=== PATIENT | female | born 1960 | race Caucasian/White ===

== ENCOUNTER 2018-02-11 13:01 | Inpatient (IN) | payer OTHER ==
--- NOTE | 2018-02-11 13:51 | CT ---
HEAD CT WITHOUT CONTRAST: 02/11/2018 HISTORY: Slurred speech and weakness. COMPARISON: None. TECHNIQUE: Serial axial CT imaging at 5 m intervals, from the vertex through the skull base, without contrast. FINDINGS: The imaged paranasal sinuses and mastoid air cells are well aerated. There is no displaced calvarial fracture, intracranial hemorrhage, midline shift, or mass effect. IMPRESSION: No acute findings. The results were called to Dr. Addison at 1:35 p.m. on 02/11/2018. CODE CR POS: [facility]
[2018-02-11 14:19] LABS: #Eosinphils 0.1 thou/uL (0.0-0.7); #Lymphocytes 1.5 thou/uL (1.20-3.40); #Monocytes 0.4 thou/uL (0.11-0.59); #Neutrophils 2.5 thou/uL (1.40-6.50); %Basophils 0.1 % (0.0-1.0); %Eosinophils 2.8 % (0.0-10.0); %Lymphocytes 33.1 % (21.0-51.0); %Monocytes 8.6 % (0.0-10.0); %Neutrophils 55.4 % (42.0-75.0); Mean Corpuscular HGB CONC 33.6 g/dL (32.0-36.0); Mean Corpuscular Hemoglobin 29.9 pg (27.0-31.0); Mean Corpuscular Volume 89.1 fl (81.0-99.0); Mean Platelet Volume 7.9 fL (7.4-10.4); Platelet Count 201 thou/uL (130-400); RBC Distribution Width 14.6 % (11.5-14.5); White Blood Cell (WBC) Count 4.6 thou/uL (4.8-10.8)
[2018-02-11 14:25] LABS: INR-International Normal Ratio 0.9; PTT 31.8 SEC (22.9-36.1); Prothrombin Time 12.3 SEC (12.0-14.7)
[2018-02-11 14:32] LABS: ALT (SGPT) 47 U/L (8-55); AST (SGOT) 29 U/L (5-34); Albumin 4.2 g/dL (3.5-5.0); Alkaline Phosphatase 103 U/L (40-150); Anion Gap 12 mmol/L (10-20); BUN (Urea Nitrogen) 18 mg/dL (9.8-20.1); Bilirubin, Total 0.5 mg/dL (0.2-1.2); Calc. Creatinine Clearance 0 mL/min (70-130); Carbon Dioxide 23 mmol/L (22-29); Chloride 102 mmol/L (98-107); Estimated GFR-MDRD 72; Globulin 2.8 g/dL (2.4-3.5); Glucose 109 mg/dL (70-105); Potassium 3.7 mmol/L (3.5-5.1); Sodium 133 mmol/L (136-145)
[2018-02-11 14:35] LABS: Actual Bicarbonate (HCO3a) 23.4 mEq/L (22-26); Analyzer IN Cardio ER; Base Excess (BEa) -0.7 mEq/L (0 (+/-) 2.5); CO2 Tension 36.5 mmHg (35.0-45.0); Calcium, Ionized 1.3 mmol/L (1.12-1.30); Hematocrit-ABG 33.9 % (36.0-47.0); O2 Tension (PaO2) 74.3 mmHg (80.0-100.0); pH, Arterial 7.42 (7.35-7.45)
[2018-02-11 14:35] LABS: CKMB 0.8 ng/mL (0-6.6); Troponin I Less than 0.010 ng/mL (< 0.028)
[2018-02-11 14:36] LABS: ALV-art Gradient 29.805 (0-20); Puncture Site RRA
[2018-02-11] MEDS ORDERED: Labetalol HCl 100 MG/20 ML VIAL ONE (14:43)
--- NOTE | 2018-02-11 14:50 | CT ---
CT ANGIOGRAM HEAD WITH IV CONTRAST AND 3D RECONSTRUCTIONS CT ANGIOGRAM NECK WITH IV CONTRAST AND 3D RECONSTRUCTIONS CT PERFUSION HEAD: Date: 02/11/18 HISTORY: Patient slid out of chair and onto floor. Patient has slurred speech and confusion that is worse per friend. FINDINGS: CT ANGIOGRAM NECK: The left common carotid artery arises from the innominate artery and is patent. The innominate artery , as well as right subclavian artery is patent. Portions of the left subclavian artery are obscured d ue to dense contrast in the left subclavian vein. The bilateral common carotid arteries, as well as the left internal and external carotid arteries are patent. There is motion artifact at the level of the origin of the right internal carotid artery, but the rig ht internal carotid artery does appear patent. There are patent and codominant bilateral vertebral arteries. There is mild atelectasis seen in the upper lobes bilaterally. Calcified mediastinal lymph node is visualized. Minimal vascular calcifications seen at the aortic arch. No other interval change. IMPRESSION: 1. Motion artifact at the origin of the right internal carotid artery, but the right internal caroti d artery otherwise appears patent. 2. Patent left internal carotid artery. 3. Patent bilateral vertebral arteries. CT ANGIOGRAM BRAIN WITH IV CONTRAST AND 3D RECONSTRUCTIONS: There is minimal calcified atherosclerotic plaque involving the internal carotid arteries at the leve l of the carotid siphons. The bilateral middle cerebral arteries are patent. An A1 segment of the rig ht anterior cerebral artery is not visualized and may be either small or absent, either of which is a normal variant. The A1 segment on the left is prominent and appears to supply both anterior cerebral arteries. There is a -type origin involving the bilateral posterior cerebral arteries which are patent. Th e distal bilateral vertebral arteries, as well as basilar artery are patent. No aneurysm is seen within the limitations of the technique of this examination. IMPRESSION: No focal stenosis or branch occlusion involving the [place] or vertebrobasilar system. CT PERFUSION BRAIN: There is no abnormal mean transit time. There is symmetric appearance of the cerebral blood flow and blood volume without abnormality visualized. IMPRESSION: No evidence of a penumbra. The above findings were discussed with Dr. Hua in the emergency department on 02/11/18 at 1404 hour s. CODE CR. POS: [facility]
--- NOTE | 2018-02-11 16:05 | PDOC.FPRHP ---
- History of Present Illness Chief Complaint: dysphagia, weakness History of Present Illness: Patient is a 57yo CF with PMHx of tobacco abuse, HTN and HLD who presents s/p fall. During work earlier this AM, she stood up from her desk and fell on a chair. Reports at that time she also had slurred speech. Onset of symptoms around 11:30am. Patient was brought to ED via EMS. On admission to the ED, dysarthria and facial droop was noted. tPA was given after long discussion with cousin and patient. tPA given at 1528. Patient has significant FHx of early onset heart disease in father. Patient also reports she had hysterectomy at age 29 for heavy menses and what she describes as fibroids. She was on hormonal replacement for 1 year post surgery. Patient was never and has no hx of miscarriages. Denies prior TIA, CVA or ID. Family member in room at the time of evaluation and already report much improvement since tPA was given. ED Course: Initial NIH of 13. tPA given 1528. Labetalol 15mg given. - Allergies/Adverse Reactions Allergies Allergy/AdvReac Type Severity Reaction Status Date / Time No Known Allergies Allergy Unverified 02/11/18 18:04 - Home Medications Medication Instructions Recorded Confirmed Type Ibuprofen [Ibuprofen] 800 mg PO TID 02/11/18 02/11/18 History Lovastatin [Altoprev] 40 mg PO HS 02/11/18 02/11/18 History Triamterene/Hydrochlorothiazid 37.5 mg PO DAILY 02/11/18 02/11/18 History [Dyazide 37.5-25 Capsule] clonazePAM [Klonopin] 0.5 mg PO HS 02/11/18 02/11/18 History metFORMIN HCl [Metformin HCl ER] 1,000 mg PO BID 02/11/18 02/11/18 History Comments: Unknown medications and dosages. Patient knows she takes Metformin and Klonopin. - History PMHx: 1. HTN 2. T2DM 3. Anxiety 4. RED 5. Restless Leg Syndrome PSHx: 1. Hysterectomy FHx: Social: tobacco: 1-2 cigarettes/day; has smoked for 8-10yrs alcohol: none drugs: none recent illness: "walking PNA" 2 weeks prior PCP: Dr. Guadalupe - Review of Systems General: denies: fever/chills, weight/appetite/sleep changes Eyes: denies: eye pain, vision changes ENT: denies: nasal congestion, rhinorrhea Respiratory: denies: cough, shortness of breath Cardiovascular: denies: chest pain, palpitation Gastrointestinal: denies: nausea, vomiting, abdominal pain Genitourinary: denies: dysuria Skin: denies: rashes Musculoskeletal: reports: swelling. denies: pain, tenderness Neurological: reports: weakness. denies: numbness, syncope, seizure Psychological: reports: anxiety. denies: depression - Vital signs BP: 172/96 HR: 98 RR: 20 Tmax: 97.8 Pox: 98% on RA Wt: 108kg - Physical Exam Constitutional: awake, alert and oriented, well developed -Constitutional: dysarthric when speaking, slow to answer. HEENT: normocephalic and atraumatic, PERRLA, EOMI, grossly normal vision, grossly normal hearing Neck: supple, FROM, no bruits Heart: RRR, normal S1/S2, no murmurs/rubs/gallops, pulses present -Heart: 1+ pitting edema Lungs: CTAB, no respiratory distress, good air movement Abdomen: soft, non-tender, bowel sounds present Musculoskeletal: normal structure, normal tone -Musculoskeletal: strength 5/5 in UE bilaterally and 5/5 in RLE and 4/5 in LLE Neurological: CN II-XII intact, normal sensation, DTRs 2+ -Neurological: difficulty with spatial recognition during finger to nose test, difficulty when performing dysdiadochokinesia, recent memory of event clouded, otherwise memory intact, dysarthric speech Skin: no rash/lesions Heme/Lymphatic: no purpura, no petechia FMR H&P: Results - Labs Result Diagrams: 02/11/18 14:08 02/11/18 14:08 Lab results: WBC 4.6 thou/uL (4.8-10.8) L 02/11/18 14:08 Hgb 12.0 g/dL (12.0-16.0) 02/11/18 14:08 Hct 35.7 % (36.0-47.0) L 02/11/18 14:08 MCV 89.1 fl (81.0-99.0) 02/11/18 14:08 Plt Count 201 thou/uL (130-400) 02/11/18 14:08 Neutrophils % 55.4 % (42.0-75.0) 02/11/18 14:08 ABG pH 7.42 (7.35-7.45) 02/11/18 14:30 ABG pCO2 36.5 mmHg (35.0-45.0) 02/11/18 14:30 ABG pO2 74.3 mmHg (80.0-100.0) L 02/11/18 14:30 Sodium 133 mmol/L (136-145) L 02/11/18 14:08 Potassium 3.7 mmol/L (3.5-5.1) 02/11/18 14:08 Chloride 102 mmol/L (98-107) 02/11/18 14:08 Carbon Dioxide 23 mmol/L (22-29) 02/11/18 14:08 BUN 18 mg/dL (9.8-20.1) 02/11/18 14:08 Creatinine 0.82 mg/dL (0.6-1.1) 02/11/18 14:08 Glucose 109 mg/dL (70-105) H 02/11/18 14:08 Calcium 10.0 mg/dL (7.8-10.44) 02/11/18 14:08 Total Bilirubin 0.5 mg/dL (0.2-1.2) 02/11/18 14:08 AST 29 U/L (5-34) 02/11/18 14:08 ALT 47 U/L (8-55) 02/11/18 14:08 Alkaline Phosphatase 103 U/L (40-150) 02/11/18 14:08 CK-MB (CK-2) 0.8 ng/mL (0-6.6) 02/11/18 14:08 Serum Total Protein 7.0 g/dL (6.0-8.3) 02/11/18 14:08 Albumin 4.2 g/dL (3.5-5.0) 02/11/18 14:08 - EKG Interpretation EKG: Sinus Tachycardia, rate of 107 - Radiology Interpretation Other Status: image reviewed by me, report reviewed by me Additional comment: CTA head and neck- negative FMR H&P: A/P - Problem List (1) CVA (cerebral vascular accident) Current Visit: No Status: Suspected Code(s): I63.9 - CEREBRAL INFARCTION, UNSPECIFIED (2) Hypertensive emergency Current Visit: No Status: Acute Code(s): I16.1 - HYPERTENSIVE EMERGENCY (3) HTN (hypertension) Current Visit: No Status: Chronic Code(s): I10 - ESSENTIAL (PRIMARY) HYPERTENSION (4) Tobacco abuse Current Visit: No Status: Chronic Code(s): Z72.0 - TOBACCO USE (5) Anxiety Current Visit: No Status: Chronic Code(s): F41.9 - ANXIETY DISORDER, UNSPECIFIED (6) Type 2 diabetes mellitus Current Visit: No Status: Chronic (7) Restless leg syndrome Current Visit: No Status: Chronic (8) RED on CPAP Current Visit: No Status: Chronic Code(s): G47.33 - OBSTRUCTIVE SLEEP APNEA (ADULT) (PEDIATRIC); Z99.89 - DEPENDENCE ON OTHER ENABLING MACHINES AND DEVICES (9) Tachycardia Current Visit: No Status: Acute Code(s): R00.0 - TACHYCARDIA, UNSPECIFIED - Plan Presumed CVA s/p tPA - tPA given 1328 on 02/11 - refrain from blood draws until 24hrs post tPA - start high intensity statin and ASA after 24h post tPA - Neuro consulted, appreciate recs. - allow for permissive HTN with cutoff of 180/105, Labetalol prn for pressures greater than 180/105 - CT head tomorrow and MRI tomorrow - Work up cause of stroke with thrombotic panel and echo, FLP, FHx of early cardiac disease - Neuro checks, fall precautions - PT/OT/speech evals - NPO pending speech eval Hypertensive Emergency - allow permissive HTN as discussed above with prn Labetalol HTN - restart home meds after window for permissive HTN - awaiting med reconcilliation Anxiety - patient reports Klonopin as home medication but unsure dose - Will give anxiety meds on a prn basis at this point T2DM - unsure of home meds - NPO for now, will start SSI Restless Leg Syndrome - med rec and restart home meds RED - CPAP at night Tobacco Abuse - Nicotine patch prn - child welfare counselor on cessation VTE PPx: SCDs Code status: Full Discussed case with Dr. Fernández. Symptomatic meds will be provided. Disposition/LOS: Plan for at least 2 midnights with monitoring post tPA, Neuro eval and possible need for PT/OT/speech going home. FMR H&P: Upper Level - Pertinent history 57yo CF with PMHx of HTN and T2DM who presents s/p fall. Patient was at work when she stood up and fell into a chair. Endorses slurred speech at that time. Cousin at beside who reports she also had LT sided facial droop and LT sided weakness, mainly LUE. No hx of prior CVAs. Positive history of early family CHD. Onset of symptoms at 11:30am and received tPA at 3:30pm. Cousin reports she has had improvement in speech and weakness since tPA has been given. - Pertinent findings T 97.8 RR 20 HR 98 BP 187/123 O2 98% on RA Gen: NAD, A&O x3 HEENT: PERRLA Heart: S1 S2, RRR Lungs: CTAB Neuro: CN2-12 intact except for slight decrease LT sided facial sensation; BL UE : 5/5; LLE 3+/5; RLE 5/5, normal ELIO, normal FTNF CT Head: negative CTA Head/Neck: negative - Plan Date/Time: 02/11/18 3829 1. Slurred speech & weakness likely 2/2 CVA w/ hypertensive emergency: Onset of symptoms around 11:30am and s/p tPA at 3:30pm. Family at bedside who already report improvement in symptoms since medication. Admit to CCU for close monitoring. CT brain negative. Strict BP control at BP<180/105 for 24hrs. No anticoagulants/antiplatelets for 24hrs. Obtain Echo, FLP, thrombotic panel and MRI Head. Repeat CT Head in 24hrs. Neuro checks. Consult Neurology for further evaluation. 2. HTN: Patient does not know her home medications. Strict BP control. See #1 and provide meds prn. 3. T2DM: Obtain A1c. Patient states she is on metformin but doesnt know the dose. Monitor. 4. Anxiety: states she is on klonopin but does not know other meds. 5. RED: CPAP qHS 6. PPx: SCDs 7. Diet: NPO 8. Code Status: Full I, Abiola Feliz, have evaluated this patient and agree with findings/ plan as outlined by senior insight manager international resident. Pertinent changes/additions are listed here. Attending Addendum - Attending Addendum Date/Time: 02/11/18 1728 I personally evaluated the patient and discussed the management with Dr. Boyer and Dr. Feliz I agree with the History, Examination, Assessment and Plan documented above with any addition or exceptions noted below. 57 yo female with history of HTN, HLD, obesity, T2DM, RED, and tobacco use with family history of premature CHD presents to ED for evaluation of stroke-like symptoms. Symptoms include slurred speech, facial droop, and LUE weakness. Received tPA in the ED. Symptoms have improved except slurred speech and dysdiadochokinesia. Other contributing factors also include premature oophrectomy with minimal HRT. Otherwise patient denies previous history of TIA/ CVA/A fib etc. VS reviewed. Noted to be sinus tachycardia with Hypertension Emergency. Hypertensive emergency with CVA s/p tPA Will admit to ICU. Monitor closely. Will allow permissive hypertension. Labs pending. Will hold on thrombotic panel at this time. ECHO to rule out VINNIE clot and PFO. Brain imaging ordered. Trend CE. Monitor for arrhythmias. CTA of neck reviewed. Keep glucose below 150. Neuro team consulted. Adjust home meds based on co-morbid condition and other risk factors. Edna
[2018-02-11] MEDS ORDERED: ISOVUE-370 76%-LOCM 1 ML ONE (16:45)
[2018-02-11] MEDS ORDERED: Dextrose 50% Abboject 50 ML SYRINGE SLOW IVP PRN (16:57)
[2018-02-11] MEDS ORDERED: Labetalol HCl 100 MG/20 ML VIAL SLOW IVP PRN (16:57)
[2018-02-11] MEDS ORDERED: Dextrose 5% in Water 1,000 ML IV PRN (16:57)
[2018-02-11] MEDS ORDERED: Docusate 100 MG CAP PO PRN (16:57)
[2018-02-11] MEDS ORDERED: Acetaminophen 325 MG TAB PO PRN (16:57)
[2018-02-11] MEDS ORDERED: Ondansetron ODT 4 MG TAB PO PRN (17:23)
[2018-02-11] MEDS ORDERED: HumaLOG 300 UNITS/3 ML VIAL SC PRN ×2 (17:23)
[2018-02-11] MEDS ORDERED: Nicotine 14 MG PATCH TD PRN (17:23)
[2018-02-11] MEDS ORDERED: Ondansetron HCl/PF 4 MG/2 ML Vial IVP PRN (17:23)
[2018-02-11 18:00] LABS: Hemoglobin A1c 6.6 % (4.0-6.0)
--- NOTE | 2018-02-11 18:32 | CT ---
CT BRAIN NONCONTRAST: HISTORY: 57-year-old female with CVA: Dysarthria and confusion. FINDINGS: There is no midline shift or any other mass effect. There is no evidence of acute intracranial hemor rhage, large cortical infarct, obstructive hydrocephalus, or extraaxial fluid collection. The calvar ium is intact. IMPRESSION: No acute intracranial findings. piter POS: [facility]
[2018-02-11] MEDS: Atorvastatin Calcium 40 MG TAB PO SCH (19:59)
[2018-02-11] MEDS: clonazePAM 0.5 MG TAB PO SCH (21:15)
[2018-02-11] MEDS ORDERED: clonazePAM 0.5 MG TAB PO SCH (23:30)
[2018-02-11] MEDS: Sodium Chloride 0.9% 1,000 ML IV SCH (23:37)
--- NOTE | 2018-02-12 00:20 | CON ---
DATE OF CONSULTATION: 02/11/2018 REASON FOR CONSULTATION: Acute onset right-sided weakness. REFERRING PHYSICIAN: Dr. Janell Boyer. HISTORY OF PRESENT ILLNESS: Ms. Tidwell is a pleasant 57-year-old female , who has been consulted for evaluation of right-sided weakness. History is obtained from the patient's cousin, who was present at bedside. Apparently, patient was sitting in a chair and was having difficulty with standing up. She tried to get up and she fell back down onto the chair. She was also noted to have some slurring of the speech. EMS was called. On the arrival of the EMS, the patient kept repeating that she is dizzy. She was also having difficulty with moving her right side and her speech was being slurred. She currently denies any headache, chest pain, palpitation, nausea, vomiting. PAST MEDICAL HISTORY: Significant for hypertension, diabetes, anxiety, obstructive sleep apnea, restless legs syndrome. PAST SURGICAL HISTORY: Significant for hysterectomy. FAMILY HISTORY: Noncontributory. SOCIAL HISTORY: She smokes 1-2 cigarettes per day. She denies alcohol use. She denies illicit drug use. FAMILY HISTORY: Noncontributory. CURRENT MEDICATIONS: Please review MAR. ALLERGIES: No known drug allergies. REVIEW OF SYSTEMS: As mentioned, which was negative. PHYSICAL EXAMINATION: VITAL SIGNS: Blood pressure of 174/106, pulse of 103, temperature of 97.4, respirations of 16, O2 sats of 96% on room air. GENERAL: A well-developed, well-nourished female, in no apparent distress. RESPIRATORY: Clear to auscultation bilaterally. CARDIOVASCULAR: Regular rate and rhythm. NEUROLOGIC: Mental status: The patient is awake, alert, oriented x3. Speech and language: Fluent speech. Cranial nerves: Pupils are 3 mm and reactive. Visual tsai are full to finger counts, and full to threat. External muscles are intact. Face is symmetric. Tongue is midline. Motor exam showed normal tone and bulk with a 5/5 strength in both upper extremities with a slight pronator drift on the right upper extremity. Her strength in both lower extremities is 5/5 except in the right lower extremity. She is weak on hip flexion and has right lower extremity pronator drift. Sensory: Sensation is intact. Deep tendon reflexes 1+ reflex in both upper and lower extremities. Babinski: Plantar responses flexion bilaterally. Coordination intact to finger -nose-finger and finger tapping bilaterally. LABORATORY DATA: Labs are reviewed, which included CBC, coag panel, CMP, which is significant for WBC of 4.6, sodium 133, glucose of 109, and hemoglobin A1c of 6.6, otherwise unremarkable. IMAGING STUDIES: CT head without contrast, CT angiogram of the head and neck, and CT perfusion scan were reviewed. CT head without contrast showed no acute intracranial abnormality. CT angiogram of the head and neck were reviewed, which showed no acute intracranial or extracranial vascular abnormality. CT perfusion scan of the brain was reviewed, which showed no evidence of penumbra. IMPRESSION: 1. Acute onset right-sided weakness, likely secondary to ischemic event. Patient is status post IV tPA. 2. Hypertension. 3. Diabetes. ASSESSMENT AND PLAN: Ms. Tidwell is a pleasant 57-year-old female, who presented with acute onset of right hemiparesis. She is now status post IV tPA. At this time, I would recommend continuing close monitoring for neurological exam over the next 24 hours. I will recommend obtaining MRI brain without contrast in the morning. I will recommend obtaining echocardiogram and lipid profile for stroke workup. I will recommend avoiding any antiplatelet or anticoagulation therapy for 24 hours post-TPA. Consult PT, OT, speech therapy. Continue current medical management. Thank you for consultation. FAINA
[2018-02-12] MEDS ORDERED: rOPINIRole HCl 0.5 MG TAB PO SCH (01:45)
--- NOTE | 2018-02-12 07:38 | PDOC.FM ---
- Subjective Subjective: Patient states she is doing better this morning, confirmed by family member at bedside. Overnight did have trouble with pain in her legs due to known restless leg syndrome, relieved by Klonopin and Requip. Otherwise, patient reports increased strength but continued speech difficulty. - Objective MAR Reviewed: Yes Vital Signs & Weight: Vital Signs (12 hours) Temp Pulse Resp BP Pulse Ox 02/12/18 04:00 98.4 F 02/12/18 02:35 86 97 02/11/18 22:59 100 187/90 H 02/11/18 20:00 97.4 F L 100 20 97 Most Recent Monitor Data Heart Rate from ECG 82 NIBP 130/64 NIBP BP-Mean 75 Respiration from ECG 18 SpO2 96 I&O: 02/11/18 02/12/18 02/13/18 06:59 06:59 06:59 Intake Total 664 Output Total 1225 Balance -561 Result Diagrams: 02/11/18 14:08 02/11/18 14:08 Phys Exam - Physical Examination Constitutional: NAD HEENT: PERRLA, moist MMs EOMI Neck: full ROM Respiratory: no wheezing, no rales, clear to auscultation bilateral Cardiovascular: RRR, no significant murmur Gastrointestinal: soft, non-tender, no distention trace edema bilateral LE Neurological: moves all 4 limbs strength 5/5 in bilateral UE and RLE, LLE with 4/5. Improved finger to nos dysarthria from baseline Psychiatric: normal affect, A&O x 3 Skin: cap refill <2 seconds Dx/Plan (1) CVA (cerebral vascular accident) Code(s): I63.9 - CEREBRAL INFARCTION, UNSPECIFIED Status: Suspected (2) Hypertensive emergency Code(s): I16.1 - HYPERTENSIVE EMERGENCY Status: Acute (3) HTN (hypertension) Code(s): I10 - ESSENTIAL (PRIMARY) HYPERTENSION Status: Chronic (4) Tobacco abuse Code(s): Z72.0 - TOBACCO USE Status: Chronic (5) Anxiety Code(s): F41.9 - ANXIETY DISORDER, UNSPECIFIED Status: Chronic (6) Type 2 diabetes mellitus Status: Chronic (7) Restless leg syndrome Status: Chronic (8) RED on CPAP Code(s): G47.33 - OBSTRUCTIVE SLEEP APNEA (ADULT) (PEDIATRIC); Z99.89 - DEPENDENCE ON OTHER ENABLING MACHINES AND DEVICES Status: Chronic (9) Tachycardia Code(s): R00.0 - TACHYCARDIA, UNSPECIFIED Status: Acute - Plan Plan: Presumed CVA s/p tPA - symptoms improving overall, still with dysarthria and LLE weakness - tPA given 1328 on 02/11 - refrain from blood draws, anticoagulants and antiplatelets until 24hrs post tPA - continue high intensity statin - Dr. Montejo, Neuro, following. Appreciate recs. - allow for permissive HTN with cutoff of 180/105, Labetalol prn for pressures greater than 180/105 - MRI today - Work up cause of stroke with thrombotic panel and echo, FLP - Neuro checks, fall precautions - PT/OT/speech evals Hypertensive Emergency - allow permissive HTN as discussed above with prn Labetalol HTN - restart home meds after window for permissive HTN - currently normotensive Anxiety - patient reports Klonopin as home medication but unsure dose - Will give anxiety meds on a prn basis at this point T2DM - ACHS accuchecks - Restart home Metformin Restless Leg Syndrome - Continue Klonopin and Requip RED - CPAP at night Tobacco Abuse - Nicotine patch prn - vocational guidance counselor on cessation
[2018-02-12] MEDS: metFORMIN XR 500 MG TAB PO SCH ×2 (09:33→19:20)
[2018-02-12] MEDS: Triamterene/Hydrochlorothiazide 37.5 mg/25 mg Tablet PO SCH (09:34)
--- NOTE | 2018-02-12 12:08 | CT ---
CT HEAD: 02/12/2018 HISTORY: Recurrent transient ischemic attack. Status post tPA administration. Slurred speech with uneven pup ils. COMPARISON: 02/11/2018 TECHNIQUE: Serial axial CT imaging at 5 mm intervals, from the vertex through the skull base, without contrast. FINDINGS: The imaged paranasal sinuses/mastoid air cells are well aerated. There is no displaced calvarial fra cture noted. No intracranial hemorrhage, midline shift, mass effect, or ventricular enlargement. IMPRESSION: 1. No intracranial hemorrhage or displaced calvarial fracture. If there is clinical concern for an a cute infarction, a brain MRI is advised. POS: [facility]
--- NOTE | 2018-02-12 12:46 | ADD-PRG ---
DATE OF SERVICE: 02/12/2018 This is an addendum to the note of Dr. Janell Boyer. I examined Ms. Tidwell early this morning. At the time of my initial exam, she was sitting in bed quiet ly. She was completely awake, alert, and in no distress. She had been admitted with hemiparesis and slurred speech. She was given t-PA in the emergency room. She has subsequently undergone a CTA of the head and neck that shows no obstructive lesions. We are awaiting results of an echocardiogram. We will start her on aspirin and have started her on atorvastatin. Her chemistry shows a sodium 133, potassium 3.7, chloride 102, bicarbonate 23, BUN 18, creatinine 0.82. Her hemoglobin A1c is 6.6. S he has also been seen in consultation by the Neurology service of Dr. Montejo. Approximately 30 minutes after my initial visit we were called to her bedside when she was complainin g of profound "dizziness." Her neurological exam at that time was unchanged. She had no focal defic its. Given that she had received t-PA we sent her for a stat noncontrast head CT which did not show any evidence of intracranial bleed. An MRI of the brain is currently pending. We will continue to michael magallanes with Dr. Montejo.
--- NOTE | 2018-02-12 13:01 | MRI ---
MRI BRAIN WITHOUT CONTRAST: Date: 02/12/18 HISTORY: CVA. COMPARISON: CT brain dated 02/12/18. FINDINGS: On the diffusion-weighted imaging sequence, there are no abnormal areas of diffusion restriction to s uggest acute infarction. This is confirmed on the ADC map. On the susceptibility imaging sequence, there are no abnormal areas of hemorrhage. Normal marrow sign al in the clivus on T1 weighted sequence. The cerebellar tonsils terminate at the foramen magnum. Orbits unremarkable. Parotid glands unremarkable. IMPRESSION: No acute hemorrhage or infarct. POS: [facility]
[2018-02-12 18:16] VITALS: BMI 44.1
[2018-02-12] MEDS ORDERED: levETIRAcetam In NaCl (Iso-Os) 1,000 MG in Premix Bag 1 BAG IVPB SCH (19:30)
--- NOTE | 2018-02-12 20:01 | PRG ---
DATE OF SERVICE: 02/12/2018 SUBJECTIVE: Ms. Tidwell is a pleasant 57-year-old female who presented with episode of right-sided weakness. She is status post IV TPA. She apparently had another episode this morning that was similar in nature. There was a family member present at bedside during that episode. She mentioned the patient started complaining of having dizziness and vertigo-type sensation followed by loss of consciousness that lasted for few minutes. There was no convulsions, no jerking, no twitching noted, although she did have a shaking of her legs at that time. She felt that she has a history of restless leg syndrome and she may be having restless leg movements. After she regained consciousness, she was having slurred speech and right-sided weakness. She has no recollection of the event that took place. She had a stat CT head without contrast done, which showed no acute intracranial abnormality. She also had MRI brain performed this afternoon, which showed no acute intracranial abnormality. She has returned to her baseline. She does have history of restless leg syndrome and was given Requip overnight, which did help with her restless leg movements. PHYSICAL EXAMINATION: VITAL SIGNS: Blood pressure of 168/98, pulse of 100, temperature of 98, respirations of 13, O2 sats of 97% on room air. GENERAL: Well-developed, well-nourished female, in no apparent distress. RESPIRATORY: Clear to auscultation bilaterally. CARDIOVASCULAR: Regular rate and rhythm. NEUROLOGICAL: Mental status: The patient is awake, alert, oriented x3. Speech and language: Fluent speech. Cranial nerves: Pupils are 3 mm and reactive. Visual tsai are intact. External muscles are intact. No nystagmus is noted. Face is symmetric. Tongue and uvula midline. Motor exam showed normal tone and bulk with a 5/5 strength in both lower extremities. Sensory: Sensation is intact and symmetric. IMAGING STUDIES: CT head without contrast was reviewed, which showed no acute intracranial abnormality. MRI brain without contrast was reviewed, which showed no ischemic event. No acute intracranial abnormality. IMPRESSION: 1. Recurrent episode of confusion followed by right hemiparesis, could be complex partial seizure followed by Gideon's paralysis. 2. Malignant hypertension. PLAN: Ms. Tidwell is a pleasant 57-year-old female who had another episode of confusion followed by right hemiparesis and dysarthria and retrograde amnesia of the event, this could be a complex partial seizure followed by Gideon's paralysis. She did have an EEG done today which I have reviewed, which showed no epileptiform discharges, sharp transients, or asymmetry. It was essentially normal awake and drowsy EEG. I have discussed with the family in detail and explained that EEG can be normal in some patients. I would recommend starting her on Keppra 500 mg b.i.d. I will load her with Keppra 1000 mg IV now dose. I have advised her that she cannot drive for at least 3 months from her last seizure episode. She will need a follow up in my clinic in 4 weeks post-discharge. There is no further neurological workup needed from my standpoint. If the patient remains stable overnight, I am okay for her to be discharged to home. She will follow up in my clinic in 4 weeks post-discharge. FAINA
[2018-02-12] MEDS: Atorvastatin Calcium 40 MG TAB PO SCH (20:55)
[2018-02-12] MEDS: clonazePAM 0.5 MG TAB PO SCH (20:55)
[2018-02-12] MEDS ORDERED: rOPINIRole HCl 0.5 MG TAB PO PRN (22:03)
[2018-02-12] MEDS: levETIRAcetam 500 MG TAB PO SCH (22:19)
[2018-02-13 05:41] LABS: Anion Gap 11 mmol/L (10-20); BUN (Urea Nitrogen) 11 mg/dL (9.8-20.1); Calc. Creatinine Clearance 119 mL/min (70-130); Calcium 10.4 mg/dL (7.8-10.44); Carbon Dioxide 28 mmol/L (22-29); Cardiac Risk 4.6 (Less than 4.5); Chloride 104 mmol/L (98-107); Cholesterol 174 mg/dl (< 200 Desired); Estimated GFR-MDRD 70; Glucose 148 mg/dL (70-105); HDL Cholesterol 38 mg/dL (>60 Neg Risk); LDL Cholesterol, Calculated 101 mg/dL; Potassium 3.7 mmol/L (3.5-5.1); Sodium 139 mmol/L (136-145); Triglycerides 175 mg/dL (Less than 150)
[2018-02-13 06:04] LABS: Band 5 % (5-11); Eosinophils 2 % (0-10); Hemoglobin 11.4 g/dL (12.0-16.0); Lymphocytes 33 % (21-51); MDiff Complete? YES; Mean Corpuscular Hemoglobin 29.3 pg (27.0-31.0); Mean Corpuscular Volume 88.7 fl (81.0-99.0); Mean Platelet Volume 7.9 fL (7.4-10.4); Monocytes 5 % (0-10); Neutrophil 55 % (42-75); Nucleated RBC 1 % (0); Platelet Count 208 thou/uL (130-400); RBC Distribution Width 14.9 % (11.5-14.5); RBC Morphology Normal; Red Blood Cell (RBC) Count 3.88 mill/uL (4.20-5.40); White Blood Cell (WBC) Count 4.6 thou/uL (4.8-10.8)
--- NOTE | 2018-02-13 06:24 | PDOC.FM ---
- Subjective Subjective: Patient is feeling better this morning. She reports normal strength. Yesterday morning had an episode of dizziness and worsened speech, she was evaluated at that time and had no focal neurological deficits from prior days. A stat CT was obtained to r/o hemorrhage s/p tPA. The CT was negative. There was mention through chart review that the patient had some shakiness of LE during the event. Patient's episode resolved on its own and today is back to her baseline. She reports she is ready to go home. - Objective MAR Reviewed: Yes Vital Signs & Weight: Vital Signs (12 hours) Temp Pulse Resp Pulse Ox 02/13/18 05:00 98.4 F 02/12/18 20:00 98.0 F 98 18 100 Weight Weight 99.3 kg Most Recent Monitor Data Heart Rate from ECG 81 NIBP 108/70 NIBP BP-Mean 86 Respiration from ECG 19 SpO2 94 I&O: 02/11/18 02/12/18 02/13/18 06:59 06:59 06:59 Intake Total 664 561 Output Total 1226 4315 Balance -561 -2134 Result Diagrams: 02/13/18 05:13 02/13/18 05:13 Phys Exam - Physical Examination Constitutional: NAD HEENT: PERRLA, moist MMs Respiratory: no wheezing, no rales, clear to auscultation bilateral Cardiovascular: RRR, no significant murmur Gastrointestinal: soft, non-tender Musculoskeletal: pulses present Neurological: normal sensation, moves all 4 limbs no dysdiadochokinesia, strength 5/5 UE and LE Psychiatric: normal affect, A&O x 3 Dx/Plan (1) Complex partial seizure Code(s): G40.209 - LOCAL-REL SYMPTC EPI W CMPLX PRT SEIZ,NOT NTRCT,W/O STAT EPI Status: Suspected Qualifiers: Epilepsy type: partial symptomatic (2) CVA (cerebral vascular accident) Code(s): I63.9 - CEREBRAL INFARCTION, UNSPECIFIED Status: Ruled-out (3) Hypertensive emergency Code(s): I16.1 - HYPERTENSIVE EMERGENCY Status: Acute (4) HTN (hypertension) Code(s): I10 - ESSENTIAL (PRIMARY) HYPERTENSION Status: Chronic (5) Tobacco abuse Code(s): Z72.0 - TOBACCO USE Status: Chronic (6) Anxiety Code(s): F41.9 - ANXIETY DISORDER, UNSPECIFIED Status: Chronic (7) Type 2 diabetes mellitus Status: Chronic (8) Restless leg syndrome Status: Chronic (9) RED on CPAP Code(s): G47.33 - OBSTRUCTIVE SLEEP APNEA (ADULT) (PEDIATRIC); Z99.89 - DEPENDENCE ON OTHER ENABLING MACHINES AND DEVICES Status: Chronic (10) Tachycardia Code(s): R00.0 - TACHYCARDIA, UNSPECIFIED Status: Acute - Plan Plan: Complex Partial Seizure, suspected - Loading dose of 1000mg Keppra given - will give Keppra 500mg BID daily going forward - No driving until seizure free for 3 months - F/u with Dr. Montejo outpatient in 4 wks CVA s/p tPA, ruled out - patient with another episode of dizziness and L sided weakness yesterday, stat CT negative for hemorrhage, possible shaking of legs during this episode-- > May be complex partial seizure. - tPA given 1328 on 02/11, tPA protocol complete - continue high intensity statin with ASCVD 10yr risk is 15% - Dr. Montejo, Neuro, following. Appreciate recs. - MRI negative - Work up stroke causes with thrombotic panel and echo, FLP -FLP with high triglycerides -thrombotic panel pending -echo pending - Neuro checks, fall precautions - PT/OT/speech evals HTN - hold home meds, patient currently hypotensive Anxiety - patient reports Klonopin as home medication but unsure dose - Will give anxiety meds on a prn basis at this point T2DM - ACHS accuchecks - Restart home Metformin Restless Leg Syndrome - Continue Klonopin and Requip RED - CPAP at night Tobacco Abuse - Nicotine patch prn - guidance counselor on cessation Hypertensive Emergency - resolved Dispo: Likely d/c home today with follow up with Dr. Montejo outpatient.
[2018-02-13 06:43] LABS: PTT 35.2 SEC (22.9-36.1); Prothrombin Time 13.7 SEC (12.0-14.7)
[2018-02-13 06:44] LABS: D-Dimer Test 0.46 *mcg/mL (0.27-0.43)
[2018-02-13] MEDS ORDERED: Aspirin 325 mg Enteric Coated Tablet PO SCH (09:00)
[2018-02-13] MEDS: levETIRAcetam 500 MG TAB PO SCH (09:35)
[2018-02-13] MEDS: Triamterene/Hydrochlorothiazide 37.5 mg/25 mg Tablet PO SCH (09:35)
[2018-02-13] MEDS: metFORMIN XR 500 MG TAB PO SCH (09:40)
--- NOTE | 2018-02-13 09:44 | CON ---
DATE OF CONSULTATION: 02/12/2018 SERVICE: PULMONARY MEDICINE: REASON FOR CONSULT: ICU patient. HISTORY OF PRESENT ILLNESS: The patient is a 57-year-old white female with past medical history is significant for hypertension, diabetes, sleep apnea, restless leg syndrome. She was in her usual state of health until she had an abrupt onset of neurologic function. She stood up from her desk at work and fell on a chair. She also had some slurred speech. She was brought to the emergency department via an EMS and she had some noted facial droop that was present. That being said she did not have many focalizing symptoms. She ended up getting a dose of TPA yesterday at 1530 hours. Following the TPA administration, things seem to resolve quite abruptly. She nearly returned to her usual state of health by this afternoon. She was doing well through the morning and was going to be considered for transition to the floor, when she had an abrupt onset of the same changes. She was then sent down for an MRI of the head that was previously scheduled. She is just now returning from that. She currently denies any. This neurologic episode is also starting to clear. At this time, she has no focalizing symptoms and is able to understand all of my speech, and speak with coherent thoughts. PAST MEDICAL HISTORY: 1. Morbid obesity. 2. Hypertension. 3. Dyslipidemia. 4. Anxiety disorder. 5. Type 2 diabetes mellitus. 6. Obstructive sleep apnea. 7. Restless leg syndrome. PAST SURGICAL HISTORY: Hysterectomy. SOCIAL HISTORY: One to two cigarettes on a daily basis. She denies any alcohol or illicit drug use. She had walking pneumonia 2 weeks prior to admission. She denies any illicit drugs, chemicals, dust asbestos or tuberculosis. FAMILY HISTORY: Noncontributory. ALLERGIES: No known drug allergies. MEDICATIONS: List for inpatient medications were reviewed. No updates were made at this time. PHYSICAL EXAMINATION: VITAL SIGNS: Afebrile, pulse 100, blood pressure 183/104, respirations 13, saturation 97% on room air. GENERAL: The patient is awake and alert. She is absolutely in no distress. HEENT: Normocephalic, atraumatic. Sclerae are white, conjunctivae pink. Oral mucosa is moist without lesions. LUNGS: Very good air entry. There is no prolonged expiratory phase or wheezing present. HEART: Normal rate, regular. ABDOMEN: Soft, nontender, nondistended. Bowel sounds are positive. MUSCULOSKELETAL: No cyanosis or clubbing. Trace to 1+ pitting in the bilateral lower extremities. NEUROLOGIC: She demonstrates excellent strength throughout. This is perfectly symmetric. Cranial nerves II-XII are intact. She rapidly alternating movements are symmetric. There are little slow in the upper extremities, but once again, they are symmetric individually. Her kams-to-[id number] is intact as is [id number]. She demonstrates no asterixis. Sensation seems to be intact throughout. Gait will not be tested at this time. LABORATORY DATA: WBC 4.6, hemoglobin 12.0, platelets 201,000. INR is 0.9. PH 7.42, pCO2 of 36, pO2 of 74. Basic metabolic profile and liver function studies are completely unremarkable. Troponin is negative. Hemoglobin A1c is 6.6. Blood sugars ranged from 109-160. IMAGIN. MRI of the brain demonstrates no acute hemorrhage or infarction identified. 2. CT of the brain demonstrates no acute intracranial abnormality. 3. Echocardiogram demonstrates 50-55% ejection fraction. Normal left ventricle. Normal right atrium and right ventricle function. No evidence of pericardial effusion. Certainly, no vegetations in any of the valves were identified. No thrombus is noted. 4. CTA of the head and neck demonstrates motion artifact at the origin of the right ICA, but the right internal carotid artery is otherwise patent. Patent left internal carotid artery. Patent bilateral vertebral arteries. No evidence of an ischemic penumbra. No focal stenosis or branch occlusions are involving the [place] or vertebrobasilar system. ASSESSMENT: 1. Spell status post TPA. 2. Morbid obesity. 3. Anxiety disorder. 4. Type 2 diabetes mellitus. PLAN: At this point, neurologic exam is completely nonfocal once again. From my perspective, she is stable for transition out of the ICU to the Neurology unit. Orthostatic vital signs will be obtained prior to her departure. Neurology will see her this evening and if they are okay with our transition out , then this will occur. Pulmonary Critical Care, we will continue to follow if she remains in this location. 70 minutes have been devoted to this patient in various activities. I personally reviewed all imaging studies and laboratory data noted within this document. For fifty percent of this time, I was interacting with the patient at the bedside or coordinating care with the care team. For the remainder of the time I was immediately available to the patient in the hospital unit. FAINA
[2018-02-13] MEDS: Sodium Chloride 0.9% 1,000 ML IV SCH (10:34)
[2018-02-13 11:48] VITALS: BP 133/70; TEMP 97.4
--- NOTE | 2018-02-13 14:24 | ADD-PRG ---
ADDENDUM This is an addendum to the note of Dr. Janell Boyer. Ms. Tidwell this morning is completely awake and al ert. She demonstrates no focal neurological deficits whatever. Dr. Montejo saw the patient again yeste rday after her further "episodes." EEG followup did not show seizure activity. However, Dr. Montejo fe els that this possibly could be a complex seizure with a postictal Gideon's paralysis. In the event, h e has recommended we begin Keppra 500 mg b.i.d. Otherwise, Ms. Tidwell's workup has been completely neg ative for TIA/stroke and she will be discharged today.
--- NOTE | 2018-02-13 21:38 | PRG ---
DATE OF SERVICE: 02/13/2018 SERVICE: Pulmonary Medicine. INTERVAL HISTORY: The patient is doing fantastic from a respiratory standpoint. She had no respiratory events or neurologic events overnight. Otherwise, things remain fairly stable. She was started on anti-seizure drug for possible seizure disorder. Otherwise, there has been no interval change to her condition. PHYSICAL EXAMINATION: VITAL SIGNS: Afebrile, pulse 105, blood pressure 133/70, respirations 16, saturation 97% on room air. GENERAL: The patient is awake and alert, no apparent distress. LUNGS: Decent air entry with no prolonged expiratory phase. HEART: Normal rate, regular. ABDOMEN: Soft, nontender, nondistended. Bowel sounds are positive. MUSCULOSKELETAL: No cyanosis or clubbing. No pitting in the bilateral lower extremities. NEUROLOGIC: Grossly nonfocal. LABORATORY DATA: Basic metabolic profile is unremarkable. Calcium 10.4. CBC is also stable/unremarkable. Hypercoagulable workup is currently pending. ASSESSMENT: 1. Spell, status post TPA. 2. Morbid obesity. 3. Anxiety disorder. 4. Possible seizure disorder. 5. Type 2 diabetes mellitus. 6. Obstructive sleep apnea. PLAN: From a purely respiratory perspective, the patient is doing fantastic. She can be transitioned to the floor, or discharged from the hospital if okay by Neurology. She has been started on antiepileptic drugs for possible seizure episodes. This will be further investigated in the outpatient setting. If she remains in this location, I will continue to follow. Please call with additional questions or concerns moving forward. FAINA
--- NOTE | 2018-02-14 15:33 | DIS-2 ---
DATE OF ADMISSION: 02/11/2018 DATE OF DISCHARGE: 02/13/2018 RESIDENT: Janell Boyer DO ADMITTING ATTENDING: Yolanda Fernández MD DISCHARGE ATTENDING: Gerardo Marie MD CONSULTATIONS: 1. Neurology, Dr. Jocelyne Montejo. 2. Pulmonology, Dr. Guido Mac. INPATIENT PROCEDURES/OPERATIONS: 1. CT angiography which shows no evidence of penumbra with no abnormal mean transit time on perfusion scan and no focal stenosis or branch occlusion involving the [place] of [place] or vertebral basilar system. Also, notes a motion artifact at the origin of the right internal carotid artery. The right internal carotid artery, otherwise appears patent and patent left internal carotid artery and patent bilateral vertebral arteries. 2. Brain CT with no acute findings on 02/11/2018. 3. Repeated brain CT on 02/11/2018 which again showed no acute intracranial findings. Echocardiogram shows an ejection fraction of 50-55%, mildly dilated left atrium, moderate mitral regurgitation, mild aortic regurgitation, mild tricuspid regurgitation, and no thrombus noted in the cardiac chambers. 4. Brain CT on 02/12/2018 shows no intracranial hemorrhage or displaced, calvarial fracture. Brain MRI on 02/12/2018 shows no acute hemorrhage or infarct. PRIMARY DIAGNOSES: 1. Transient ischemic attack versus complex seizures. 2. Hypertension. 3. Anxiety. 4. Type 2 diabetes. 5. Restless leg syndrome. SECONDARY DIAGNOSES: 1. Obstructive sleep apnea. 2. Tobacco abuse. DISCHARGE MEDICATIONS: 1. Triamterene/hydrochlorothiazide 37.5/25 mg 1 tablet p.o. daily. 2. Ibuprofen 800 mg p.o. t.i.d. 3. Metformin 1000 mg p.o. b.i.d. 4. Klonopin 0.5 mg p.o. at bedtime. 5. Requip 0.5 mg p.o. at bedtime p.r.n. 6. Keppra 500 mg p.o. b.i.d. 7. Lipitor 40 mg p.o. at bedtime. 8. Aspirin 325 mg p.o. daily. DISCONTINUED MEDICATIONS: None. HISTORY OF PRESENT ILLNESS AND HOSPITAL COURSE: The patient is a 57-year-old female with past medical history of tobacco abuse, hypertension, hyperlipidemia who presents status post fall at work. At the time reported dizziness, slurred speech and some left extremity weakness, onset of symptoms around 11:30 a.m. The patient was brought to the ED via EMS. On admission, dysarthria and facial droop, and some left lower extremity weakness were noted. After a long discussion with the patient's family member and the patient TPA was given at 1528 hours. Patient has significant family history of early onset heart disease. With an initial INH score of 13, the patient was admitted to the ICU for post-tPA protocol, blood draws along with anticoagulation were held for 24 hours post-tPA and permissive hypertension was allowed for 24 hours since onset of symptoms. Initially, patient came in in hypertensive urgency, was given labetalol to lower her blood pressure down for ability to administer tPA and post-tPA, the blood pressures did remain elevated and once a 24-hour window was done, restarted on home medication, but blood pressure is in good control. She is complaining of worsening restless leg syndrome overnight, was given her Requip with good results. There was an event on day 2 of admission where she began feeling similar symptoms to what brought her in. She had been seen earlier that morning with resolution of neuro deficits. The event lasted about 10 min and had associated leg tremors. An acute bleed post tPA was ruled out with CT and MRI. Dr. Montejo was consulted on admission and upon thorough review found the patient has a likely complex partial seizures. The patient was loaded on Keppra and then placed on [address] Montejo[address] Physical therapy, occupational therapy, and speech therapy saw the patient and deemed the patient well enough to go home. Patient's neurological deficits completely resolved. It was thought that this could have been a CVA or possible transient ischemic attack. The patient was checked for causes of those things. An echocardiogram was done which was negative and a fasting lipid panel was done and with her ASCVD risk was placed on high intensity statin. PERTINENT LABORATORY FINDINGS: Initial CBC only positive for a slightly low white blood cell count of 4.6, which remained stable. Chemistry panel with initially abnormal Na corrected to 139 and glucose slightly elevated. The patient does have diabetes and Accu-Cheks were performed and found to be in normal range for glucose. Hemoglobin A1c was found to be 6.6. Triglycerides were elevated at 175, total cholesterol 174, and HDL 38. After discharge, the following lab results revealed elevated Cardiolipid IgM antibody at 67, elevated Factor VIII activity, and a positive hexagonal phospholipid neutralization test. Overall, unclear what the final diagnosis is but likely more of a complex seizure type picture. The patient is to follow up with Dr. Montejo. I have addressed multiple risk factors, using medications. Patient will need to repeat lab work to confirm abnormalities and cardiolipin antibody and factor VIII and hexagonal phospholipid neutralization test. This could be due to acute stress reaction and changed by tPA administration. Patient's chronic medical conditions were treated with home medication with the addition of Requip for restless leg syndrome. At the end of her stay, the patient was back to her baseline without any neurological deficits and did not require any physical therapy. The patient is to follow up with Dr. Guadalupe within 3 to 5 days. DISPOSITION: Stable. DISCHARGE INSTRUCTIONS: 1. Location: Home. 2. Diet: Heart healthy diet, low sodium diet, ADA diet. 3. Activity: As tolerated. 4. Followup: Follow up with Dr. Guadalupe in 3-5 days. [facility]
[2018-02-15 12:24] LABS: Protein C Activity 161 % (78-152)
[2018-02-15 12:26] LABS: Factor VIII Test 248.5 % ACTIVE (56-157)
[2018-02-20 03:15] LABS: Activated Protein C Resistance 2.3 ratio (.); Hexagonal Phospholipid Neut 15 sec (.)
--- NOTE | 2018-03-03 01:18 | EKG ---
Test Reason : Blood Pressure : / mmHG Vent. Rate : 107 BPM Atrial Rate : 107 BPM P-R Int : 116 ms QRS Dur : 082 ms QT Int : 332 ms P-R-T Axes : 014 044 048 degrees QTc Int : 443 ms Sinus tachycardia No STEMI Otherwise normal ECG Confirmed by BUD LORENZ, GERONIMO ([id number]), content editor IRAIDA FLORES ([id number]) on 03/03/2018 1:17:40 AM Referred By: Confirmed By:GERONIMO FARRELL MD
--- NOTE | 2018-03-08 10:36 | EEG ---
Referring Physician: DR. COURTNEY JERNIGAN EEG # [id number] PROCEDURE: Inpatient portable electroencephalogram. NAME OF PATIENT: Liza Tidwell : 1960 DATE EEG DONE: 02/12/2018 REFERRING PHYSICIAN: DR. COURTNEY JERNIGAN INDICATION: Altered mental status, myoclonic jerks. EEG CLASSIFICATION: Normal awake and asleep. REPORT: This is a 22-channel digital EEG recording utilizing 10-20 international electrode placement system on a patient who presents with somnolence, altered mental status, myoclonic jerks. During wakefulness, the background activity consists of moderate amplitude alpha rhythm of 8-9 Hz which is symmetric and reactive. This activity is penetrated with low amplitude beta activity and also with some myogenic activity representing frontalis and temporalis muscles bilaterally. There is some movement artifact and electrode artifact noted. DROWSINESS AND SLEEP: Subject is able to attain periods of drowsiness with diffuse theta activity. She is snoring during the EEG with ma be some sleep potentials recorded on the EEG. No asymmetry or paroxysmal activity noted. INDUCTION: HYPERVENTILATION: Could not be performed. PHOTIC STIMULATION: No photic drive seen. Patient has frequent leg movements recorded during this EEG, which are not associated with any epileptiform activity on the EEG. Some of them did show increased myogenic activity, but again no epileptiform activity or electrographic seizure activity with the leg movements. IMPRESSION: This EEG is considered normal awake and asleep EEG. There is no clear epileptiform activity or focal abnormality noted. The leg jerking movements recorded during this EEG are not associated with any epileptiform activity or electrographic seizure activity on the EEG. Clinical correlation recommended. Tablet Making Machine Operator Helper: QUIANA Aircraft Landing Gear Inspector: EEG.BEN EISENBERG
== END 2018-02-13 12:06 | disposition home or self-care (01) | DRG 101 ==
LOC: ERS 13:01 → CCU 18:25 → 2SE 02-13 10:08
PROVIDERS: ADMIT Family Medicine; ATTEND Family Medicine
DX: G40.209 Localization-related (focal) (partial) symptomatic epilepsy and epileptic syndromes with complex partial seizures, not intractable, without status epilepticus (principal); G83.84 Todd's paralysis (postepileptic); E66.01 Morbid (severe) obesity due to excess calories; Z68.41 Body mass index [BMI] 40.0-44.9, adult; I16.1 Hypertensive emergency; F41.9 Anxiety disorder, unspecified; E11.9 Type 2 diabetes mellitus without complications; G47.33 Obstructive sleep apnea (adult) (pediatric); R47.81 Slurred speech; R55 Syncope and collapse; I10 Essential (primary) hypertension; G25.81 Restless legs syndrome; E78.5 Hyperlipidemia, unspecified; F17.210 Nicotine dependence, cigarettes, uncomplicated; R00.0 Tachycardia, unspecified
CPT/HCPCS: 0042T; 36415; 36416; 70450; 70496; 70498; 70551; 80048; 80053; 80061; 81240; 82553; 82805; 83036; 83090; 84484; 85025; 85240; 85300; 85303; 85305; 85307; 85379; 85598; 85610; 85730; 93005; 93306; 94660; 95816; 95819; 96365; 96374; 96376; 99292; G8978-GP-CN; G8979-GP-CK; G8987-GO-CI; G8988-GO-CI; G8989-GO-CI; G8996-GN-CI; G8997-GN-CI; J1953; J2997

== ENCOUNTER 2018-03-18 12:42 | Outpatient (CLI) | payer OTHER ==
[~2018-03-18 12:42] MED LIST: Gadobenate Dimeglumine 529 MG/1 ML (20ML VIAL) ONE
--- NOTE | 2018-03-18 16:01 | MRI ---
PRE AND POSTCONTRAST ENHANCED MRI IMAGES BRAIN: HISTORY: Dizziness, R42. FINDINGS: Multiplanar, multisequence pre- and postcontrast-enhanced MRI images of the brain obtained. Images demonstrate an approximately 9 mm area of signal abnormality seen within the calvarium with en hancement. This area is associated with an area of increased signal on the T2 weighted sequences as well. Differential diagnosis includes possible venous rodriguez. A single anesthetic lesion, however, ca nnot be completely excluded. It may be worthwhile to consider a bone scan, if there is concern for m etastatic disease, to further characterize this region. The rest of the brain is unremarkable. No evidence of intracranial masses, hemorrhages, strokes, or contusions seen. Ventricles are of normal size. Normal flow voids seen in the major intracranial ve ssels. The orbits are unremarkable. Parotid glands in the visualized portions are unremarkable. No evidence of obvious skull base lesion is seen. IMPRESSION: Unremarkable MRI of brain, except for possible right frontal intraosseous lesion. This may represent a prominent venous rodriguez. Other possibilities could include possible metastatic disease. Correlate with bone scan if clinically indicated and if there is concern for possible metastatic disease. POS: GEORGIE
== END 2018-03-18 12:43 | disposition home or self-care (01) ==
LOC: SCSMRI 12:42
PROVIDERS: ATTEND Psychiatry & Neurology Neurology
DX: R42 Dizziness and giddiness (principal); G40.909 Epilepsy, unspecified, not intractable, without status epilepticus
CPT/HCPCS: 70553; A9579

== ENCOUNTER 2019-11-12 18:12 | Emergency (ER) | payer OTHER ==
[2019-11-12] MEDS ORDERED: Lorazepam 2 MG/ML VIAL ONE (18:16)
[2019-11-12 18:35] LABS: #Eosinphils 0.2 thou/uL (0.0-0.7); #Lymphocytes 1.3 thou/uL (1.20-3.40); #Monocytes 0.4 thou/uL (0.11-0.59); #Neutrophils 5.3 thou/uL (1.40-6.50); %Basophils 0.6 % (0.0-1.0); %Eosinophils 2.2 % (0.0-10.0); %Lymphocytes 18.1 % (21.0-51.0); %Monocytes 5.6 % (0.0-10.0); %Neutrophils 73.6 % (42.0-75.0); Hemoglobin 11.4 g/dL (12.0-16.0); Mean Corpuscular HGB CONC 34.3 g/dL (32.0-36.0); Mean Corpuscular Hemoglobin 31.2 pg (27.0-31.0); Mean Corpuscular Volume 91.1 fL (78.0-98.0); Mean Platelet Volume 8.1 fL (7.4-10.4); Platelet Count 190 thou/uL (130-400); RBC Distribution Width 15.9 % (11.5-14.5); Red Blood Cell (RBC) Count 3.66 mill/uL (4.20-5.40); White Blood Cell (WBC) Count 7.1 thou/uL (4.8-10.8)
[2019-11-12] MEDS ORDERED: levETIRAcetam 500 MG/100 ML PREMIX BAG ONE (18:44)
[2019-11-12 18:55] LABS: ALT (SGPT) 22 U/L (8-55); AST (SGOT) 21 U/L (5-34); Albumin 4.3 g/dL (3.5-5.0); Alkaline Phosphatase 110 U/L (40-110); Anion Gap 19 mmol/L (10-20); BUN (Urea Nitrogen) 20 mg/dL (9.8-20.1); Bilirubin, Total 0.5 mg/dL (0.2-1.2); Calc. Creatinine Clearance 0 mL/min (70-130); Calcium 9.6 mg/dL (7.8-10.44); Carbon Dioxide 23 mmol/L (22-29); Chloride 102 mmol/L (98-107); Estimated GFR-MDRD 45; Glucose 99 mg/dL (70-105); Potassium 3.6 mmol/L (3.5-5.1); Protein, Total 7.3 g/dL (6.0-8.3); Sodium 140 mmol/L (136-145)
--- NOTE | 2019-11-12 19:37 | CT ---
CT BRAIN WITHOUT CONTRAST: 11/12/19 HISTORY: Seizure. COMPARISON: 02/12/18. FINDINGS: No evidence of acute infarct hemorrhage, midline shift or abnormal extra-axial fluid collections are seen. The ventricular size is stable and the basilar cisterns patent. The bony calvarium appears inta ct. The visualized paranasal sinuses and mastoid air cells are well aerated. IMPRESSION: Stable exam. No CT evidence of intracranial process. POS: [facility]
== END 2019-11-12 22:00 | disposition home or self-care (01) ==
LOC: ERS 18:12
DX: R56.9 Unspecified convulsions (principal); I10 Essential (primary) hypertension; E11.9 Type 2 diabetes mellitus without complications; F17.210 Nicotine dependence, cigarettes, uncomplicated; Z79.899 Other long term (current) drug therapy
CPT/HCPCS: 36415; 70450; 80053; 80177; 84146; 85025; 93005; 96365; 96372; J1953; J2060

== ENCOUNTER 2019-11-14 11:14 | Observation (INO) | payer OTHER ==
[2019-11-14 12:41] VITALS: BMI 45.8
--- NOTE | 2019-11-14 16:01 | PDOC.FPRHP ---
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 Guadalupe's office. Most of this history is obtained from the patient's daughter Estee, Dr. Guadalupe's clinic records, and review of [facility] EMR. Approximately 2 days ago the patient was at work when she felt dizzy. She then began to have episodes lasting 5-8 sec of shaking/jerking movements that lasted for about 1 hour. She was transferred by EMS to [facility] where she was given 2 mg Ativan x 2, 1 g Keppra. Had a head CT that was negative and sent home from ED. Earlier today patient was sitting in waiting room of PCP office with her daughter when her right hand began shaking, then her left leg began jerking, then patient's eyes rolled back and she had additional jerking movements in extremities and neck that lasted for approximately 15-20 minutes before stopping. Immediately after this episode the patient acted confused and did not remember what had happened. This confusion period was prolonged per daughter for several minutes. Patient was then transferred from her PCP's office for direct admission to [facility]. Upon arrival here the patient stated she has a mild headache and feels a little dizzy. Otherwise denies any other complaints including weakness, chest pain, SOB, vision or hearing changes , incontinence, myalgia, arthralgia, paresthesias. Patient states that she has not had a seizure prior to this week in about 1 year. She currently takes Keppra 500 mg BID at home. Most recent medication change on home med list was starting Adderall on 09/26/19. Patient has also been taking about 1600 mg Ibuprofen daily at home, but cannot describe specific pain. Patient also says she did not take her Keppra dose today or last night. ED Course: N/A. Patient directly admitted from Dr. Guadalupe's office. - Allergies/Adverse Reactions Allergies Allergy/AdvReac Type Severity Reaction Status Date / Time No Known Allergies Allergy Unverified 02/11/18 18:04 - Home Medications Medication Instructions Recorded Confirmed Type Ibuprofen 800 mg PO TID PRN 02/11/18 11/14/19 History Triamterene/Hydrochlorothiazid 37.5 mg PO DAILY 02/11/18 11/14/19 History [Dyazide 37.5-25 Capsule] Aspirin [Ecotrin Regular Strength] 325 mg PO DAILY #30 tab 02/13/18 11/14/19 Rx levETIRAcetam [Keppra] 500 mg PO BID #60 tab 02/13/18 11/14/19 Rx Escitalopram Oxalate [Lexapro] 20 mg PO DAILY 11/14/19 11/14/19 History Furosemide [Lasix] 40 mg PO DAILY PRN 11/14/19 11/14/19 History Glimepiride [Amaryl] 4 mg PO QAM-WM 11/14/19 11/14/19 History Lovastatin 40 mg PO HS 11/14/19 11/14/19 History Methylphenidate HCl 20 mg PO BID 11/14/19 11/14/19 History Omeprazole Magnesium [Prilosec] 10 mg PO DAILY 11/14/19 11/14/19 History Potassium Chloride 20 meq PO PRN PRN 11/14/19 11/14/19 History rOPINIRole HCl [Requip] 3 mg PO HS 11/14/19 11/14/19 History Meclizine HCl 25 mg PO TID PRN 30 Days #90 11/15/19 Rx tab.chew busPIRone HCl [Buspar] 5 mg PO BID 30 Days #60 tab 11/15/19 Rx hydrOXYzine [Atarax] 25 mg PO QID PRN 30 Days #120 tab 11/15/19 Rx Comments: Patient has stopped taking Klonopin, rest of medications listed above are accurate. Additionally patient started taking Adderall on 09/26/[address] Guadalupe clinic records. - History PMHx: HTN, HLD, DM, RED, RLS, Anxiety, Tobacco use PSHx: Hysterectomy for fibroids at age 29 FHx: no FHx of seizures Social: Smokes <1 ppd. Denies EtOH use. - Review of Systems ROS unobtainable: other (most of history obtained from patient's daughter Estee , who witnessed event.) General: reports: fatigue. denies: fever/chills, weight/appetite/sleep changes Eyes: denies: eye pain, vision changes ENT: denies: nasal congestion Respiratory: denies: cough, congestion, shortness of breath Cardiovascular: denies: chest pain, palpitation, edema Gastrointestinal: denies: nausea, vomiting, diarrhea, constipation, abdominal pain Genitourinary: denies: incontinence, dysuria Skin: denies: rashes, lesions Musculoskeletal: denies: pain, tenderness, swelling Neurological: reports: seizure. denies: numbness, weakness Psychological: reports: anxiety, depression - Vital signs BP: 147/71 HR: 83 RR: 16 Tmax: 97.5F Pox: 100% on RA Wt: 103 kg - Physical Exam Constitutional: NAD, awake, alert and oriented, well developed -Constitutional: obese HEENT: normocephalic and atraumatic, EOMI, conjunctiva clear, grossly normal vision, grossly normal hearing, MMM Neck: supple, FROM, no JVD Heart: RRR, normal S1/S2, no murmurs/rubs/gallops, pulses present, no edema Lungs: CTAB, no respiratory distress, good air movement, no rales/rhonchi, no wheezing Abdomen: soft, non-tender, bowel sounds present, no masses/distention Musculoskeletal: normal structure, normal tone, ROM grossly normal Neurological: no focal deficit, CN II-XII intact, normal sensation Skin: no rash/lesions, good turgor Heme/Lymphatic: no unusual bruising or bleeding Psychiatric: normal mood and affect FMR H&P: Results - Labs Result Diagrams: 11/15/19 04:41 11/15/19 04:41 FMR H&P: A/P - Problem List (1) Anxiety Status: Chronic Code(s): F41.9 - ANXIETY DISORDER, UNSPECIFIED (2) HTN (hypertension) Status: Chronic Code(s): I10 - ESSENTIAL (PRIMARY) HYPERTENSION Qualifiers: Hypertension type: unspecified Qualified Code(s): I10 - Essential (primary ) hypertension (3) RED on CPAP Status: Chronic Code(s): G47.33 - OBSTRUCTIVE SLEEP APNEA (ADULT) (PEDIATRIC) ; Z99.89 - DEPENDENCE ON OTHER ENABLING MACHINES AND DEVICES (4) Restless leg syndrome Status: Chronic (5) Tobacco abuse Status: Chronic Code(s): Z72.0 - TOBACCO USE (6) Type 2 diabetes mellitus Status: Chronic Qualifiers: Diabetes mellitus termite control service representative insulin use: without termite control service representative use Diabetes mellitus complication status: without complication Qualified Code(s): E11.9 - Type 2 diabetes mellitus without complications (7) Complex partial seizure Status: Suspected Code(s): G40.209 - LOCAL-REL SYMPTC EPI W CMPLX PRT SEIZ, NOT NTRCT,W/O STAT EPI Qualifiers: Epilepsy type: partial symptomatic - Plan Patient is a 59 yo female with Hx of Seizure disorder with Gideon's paralysis who presents with seizure-like activity: #Complex Partial Seizure w/ possible concern of Underlying stroke. -patient with seizure like activity, multiple episodes witnessed where patient loses awareness with involuntary movements of extremities and neck, after episodes she has no memory of what just occurred -dx with Seizure d/o with Gideon's Paralysis in January 2018 admission -consider DDx of Seizure vs Pseudoseizure -give loading dose 1000 mg Keppra -obtain Keppra level -adjust home Keppra dosing as needed, currently takes 500 mg BID -EEG ordered -Brain MRI ordered -consult Neurology, Dr. Leonard-appreciate recs -check CBC, CMP -Neuro checks q4h #Normocytic anemia, chronic -admission H/H is 11.1/32.0, MCV 91.4 -continue to monitor #HTN -continue home meds -vitals q4h #HLD -continue home meds #Diabetes mellitus -start Hyperglycemia protocol -accuchecks ACHS -mild SSI prn -continue home meds #RED -uses home CPAP but unsure of settings -order placed for CPAP to use auto-pap setting #Restless Leg Syndrome -continue home meds #Anxiety, Depression -continue home meds -May want to review meds and adjust as needed as there is concern there may be some underlying pseudoseizures. #Tobacco use -smoking cessation counseling Diet: Cons. Carb VTE: SCDs Code: FULL Dispo: Stable, admitted to observation on stroke unit. Will obtain MRI Brain, lab studies. Will consult Neurology, appreciate recs. Anticipate discharge in < 48 hrs. FMR H&P: Upper Level - Pertinent history I was present with the recruitment internship during the hpi. I made edits as needed above. Please refer above. - Pertinent findings Pt had slurred speech. She was not able to track eye movements inward. She reported getting dizzy during the eye exam. Motor and sensory grossly intact. - Plan Date/Time: 11/14/19 1601 Samson Worley, PGY3 have evaluated this patient and agree with findings/plan as outlined by recruitment internship resident. Pertinent changes/additions are listed here. Please see above for detailed plan. I have reviewed above and made edits as needed. At this time there is concern from patient PCP and family of seizure vs pseudoseizure. Will get EEG. Pt having some concerning signs of possible underlying stroke. Pt had recent CT a few days ago related to seizure. Denies any head injury since. Will place on seizure precautions and consult neuro. Addendum - Attending - Attending Attestation Date/Time: 11/16/192020 I personally evaluated the patient and discussed the management with Dr. Suarez on 11/14 at time of admission. I agree with the History, Examination, Assessment and Plan documented above with any addition or exceptions noted below.
[2019-11-14] MEDS ORDERED: Calcium Carbonate 500 MG ChewTAB PO PRN (16:03)
[2019-11-14] MEDS ORDERED: Acetaminophen 325 MG TAB PO PRN (16:03)
[2019-11-14] MEDS ORDERED: Ondansetron ODT 4 MG TAB PO PRN (16:03)
[2019-11-14 16:06] LABS: #Eosinphils 0.2 thou/uL (0.0-0.7); #Lymphocytes 1.3 thou/uL (1.20-3.40); #Monocytes 0.3 thou/uL (0.11-0.59); #Neutrophils 3.3 thou/uL (1.40-6.50); %Basophils 0.2 % (0.0-1.0); %Eosinophils 4.6 % (0.0-10.0); %Lymphocytes 25.4 % (21.0-51.0); %Monocytes 5.6 % (0.0-10.0); %Neutrophils 64.1 % (42.0-75.0); Hemoglobin 11.1 g/dL (12.0-16.0); Mean Corpuscular HGB CONC 34.8 g/dL (32.0-36.0); Mean Corpuscular Hemoglobin 31.8 pg (27.0-31.0); Mean Corpuscular Volume 91.4 fL (78.0-98.0); Mean Platelet Volume 7.9 fL (7.4-10.4); Platelet Count 172 thou/uL (130-400); White Blood Cell (WBC) Count 5.2 thou/uL (4.8-10.8)
[2019-11-14] MEDS ORDERED: levETIRAcetam In NaCl (Iso-Os) 1,000 MG in Premix Bag 1 BAG IVPB SCH (16:15)
[2019-11-14 16:30] LABS: ALT (SGPT) 24 U/L (8-55); AST (SGOT) 22 U/L (5-34); Albumin 4.3 g/dL (3.5-5.0); Alkaline Phosphatase 98 U/L (40-110); Anion Gap 14 mmol/L (10-20); BUN (Urea Nitrogen) 16 mg/dL (9.8-20.1); Bilirubin, Total 0.5 mg/dL (0.2-1.2); CK (CPK) 125 U/L (29-168); Calc. Creatinine Clearance 97 mL/min (70-130); Calcium 10.5 mg/dL (7.8-10.44); Carbon Dioxide 29 mmol/L (22-29); Chloride 104 mmol/L (98-107); Estimated GFR-MDRD 55; Globulin 2.8 g/dL (2.4-3.5); Glucose 76 mg/dL (70-105); Potassium 3.6 mmol/L (3.5-5.1); Protein, Total 7.1 g/dL (6.0-8.3); Sodium 143 mmol/L (136-145)
--- NOTE | 2019-11-14 17:40 | MRI ---
MRI Brain W WO Con HISTORY: Syncope. Evaluation for CVA. History of seizure. COMPARISON: 03/18/2018 exam. FINDINGS: The ventricular and cisternal system is within normal limits. There are no signs of hemorrh age. No abnormal white matter signal changes are seen. No signs of any infarct on the diffusion-weighted sequence. No intra or extra-axial mass is identified. No areas of abnormal contrast enhancement. The pituitary region appears unremarkable. The right frontal bone lesion is stable as compared to the prior examination and felt to be benign. IMPRESSION: Unremarkable head MRI.
[2019-11-14] MEDS ORDERED: Ibuprofen 800 MG TAB PO PRN (17:42)
[2019-11-14] MEDS ORDERED: Non-Formulary Item 1 EACH (Potassium Chloride [Potassium Chloride] 20 MEQ) PO PRN (17:42)
[2019-11-14] MEDS ORDERED: Furosemide 40 MG TAB PO PRN (17:42)
[2019-11-14] MEDS ORDERED: HumaLOG 300 UNITS/3 ML VIAL SC PRN (18:19)
[2019-11-14] MEDS ORDERED: Dextrose 50% Abboject 50 ML SYRINGE SLOW IVP PRN (18:19)
[2019-11-14] MEDS ORDERED: Dextrose 5% in Water 1,000 ML IV PRN (18:19)
[2019-11-14] MEDS ORDERED: rOPINIRole HCl 1 MG TAB PO SCH (21:00)
[2019-11-14] MEDS ORDERED: Atorvastatin Calcium 10 MG TAB PO SCH (21:00)
[2019-11-14] MEDS: levETIRAcetam 500 MG TAB PO SCH (21:12)
[2019-11-15 04:54] LABS: #Eosinphils 0.3 thou/uL (0.0-0.7); #Lymphocytes 1.5 thou/uL (1.20-3.40); #Monocytes 0.4 thou/uL (0.11-0.59); #Neutrophils 3.8 thou/uL (1.40-6.50); %Basophils 0.6 % (0.0-1.0); %Eosinophils 4.6 % (0.0-10.0); %Lymphocytes 24.1 % (21.0-51.0); %Monocytes 7.2 % (0.0-10.0); %Neutrophils 63.4 % (42.0-75.0); Hemoglobin 10.5 g/dL (12.0-16.0); Mean Corpuscular HGB CONC 34.6 g/dL (32.0-36.0); Mean Corpuscular Hemoglobin 31.5 pg (27.0-31.0); Mean Corpuscular Volume 91.1 fL (78.0-98.0); Mean Platelet Volume 7.9 fL (7.4-10.4); Platelet Count 163 thou/uL (130-400); RBC Distribution Width 15.9 % (11.5-14.5); Red Blood Cell (RBC) Count 3.34 mill/uL (4.20-5.40)
[2019-11-15 05:23] LABS: ALT (SGPT) 22 U/L (8-55); AST (SGOT) 18 U/L (5-34); Albumin 3.9 g/dL (3.5-5.0); Alkaline Phosphatase 90 U/L (40-110); Anion Gap 14 mmol/L (10-20); BUN (Urea Nitrogen) 19 mg/dL (9.8-20.1); Bilirubin, Total 0.5 mg/dL (0.2-1.2); Calc. Creatinine Clearance 98 mL/min (70-130); Calcium 9.7 mg/dL (7.8-10.44); Carbon Dioxide 27 mmol/L (22-29); Chloride 100 mmol/L (98-107); Estimated GFR-MDRD 55; Globulin 2.5 g/dL (2.4-3.5); Glucose 138 mg/dL (70-105); Potassium 3.7 mmol/L (3.5-5.1); Protein, Total 6.4 g/dL (6.0-8.3); Sodium 137 mmol/L (136-145)
--- NOTE | 2019-11-15 05:24 | PDOC.FM ---
- Subjective Subjective: Patient doing well this morning. Did not have any seizure-like activity overnight. Says her headache has resolved. Does feel a little dizzy but not as bad as before. Slept well, was able to use CPAP last night. - Objective Vital Signs & Weight: Vital Signs (12 hours) Temp Pulse Resp BP BP Pulse Ox 11/15/19 04:35 86 18 132/63 98 11/15/19 00:02 98.7 F 84 16 126/60 98 11/14/19 22:39 71 14 98 11/14/19 19:39 97.9 F 79 16 133/63 98 Weight Weight 103.102 kg I&O: 11/13/19 11/14/19 11/15/19 06:59 06:59 06:59 Intake Total 500 Balance 500 Result Diagrams: 11/15/19 04:41 11/15/19 04:41 Phys Exam - Physical Examination Constitutional: NAD HEENT: moist MMs, sclera anicteric Neck: supple, full ROM Respiratory: no wheezing, no rhonchi, clear to auscultation bilateral Cardiovascular: RRR, no significant murmur Gastrointestinal: soft, no distention, positive bowel sounds Musculoskeletal: no edema, pulses present Neurological: normal sensation, moves all 4 limbs Psychiatric: normal affect, A&O x 3 Skin: no rash, normal turgor Dx/Plan (1) Anxiety Code(s): F41.9 - ANXIETY DISORDER, UNSPECIFIED Status: Chronic (2) HTN (hypertension) Code(s): I10 - ESSENTIAL (PRIMARY) HYPERTENSION Status: Chronic Qualifiers: Hypertension type: unspecified Qualified Code(s): I10 - Essential (primary ) hypertension (3) RED on CPAP Code(s): G47.33 - OBSTRUCTIVE SLEEP APNEA (ADULT) (PEDIATRIC); Z99.89 - DEPENDENCE ON OTHER ENABLING MACHINES AND DEVICES Status: Chronic (4) Restless leg syndrome Status: Chronic (5) Tobacco abuse Code(s): Z72.0 - TOBACCO USE Status: Chronic (6) Type 2 diabetes mellitus Status: Chronic Qualifiers: Diabetes mellitus fpc insulin use: without long chain beamer use Diabetes mellitus complication status: without complication Qualified Code(s): E11.9 - Type 2 diabetes mellitus without complications (7) Complex partial seizure Code(s): G40.209 - LOCAL-REL SYMPTC EPI W CMPLX PRT SEIZ,NOT NTRCT,W/O STAT EPI Status: Suspected Qualifiers: Epilepsy type: partial symptomatic - Plan Plan: Patient is a 59 yo female with Hx of Seizure disorder with Gideon's paralysis who presents with seizure-like activity: #Complex Partial Seizure w/ possible concern of Underlying stroke. -patient with seizure like activity, multiple episodes witnessed where patient loses awareness with involuntary movements of extremities and neck, after episodes she has no memory of what just occurred -dx with Seizure d/o with Gideon's Paralysis in January 2018 admission -consider DDx of Seizure vs Pseudoseizure -Head CT on 11/12 neg -given loading dose 1000 mg Keppra (11/14) -Keppra level 21.4, therapeutic -adjust home Keppra dosing as needed, currently takes 500 mg BID -EEG taken w/official read pending, per tech report the patient had seizure during EEG but no events seen on monitor, suggestive of pseudoseizure -Brain MRI normal -consult Neurology, Dr. Leonard-appreciate recs -check CBC, CMP -Neuro checks q4h #Normocytic anemia, chronic -admission H/H is 11.1/32.0, MCV 91.4 -continue to monitor #HTN -continue home meds -vitals q4h #HLD -continue home meds #Diabetes mellitus -start Hyperglycemia protocol -accuchecks ACHS -mild SSI prn -continue home meds #RED -uses home CPAP but unsure of settings -order placed for CPAP to use auto-pap setting #Restless Leg Syndrome -continue home meds #Anxiety, Depression -continue home meds -May want to review meds and adjust as needed as there is concern there may be some underlying pseudoseizures. #Tobacco use -smoking cessation counseling Diet: Cons. Carb VTE: SCDs Code: FULL Dispo: Stable, admitted to observation on stroke unit. Neurology consulted, appreciate recs. Anticipate discharge in <48 hrs. Addendum - Attending - Attending Attestation Date/Time: 11/15/19 1017 I personally evaluated the patient and discussed the management with Dr. Suarez. I agree with the History, Examination, Assessment and Plan documented above with any addition or exceptions noted below. Awaiting recs from neurology as well as eeg interpretation. Continue current meds.
[2019-11-15] MEDS ORDERED: Potassium Chloride 20 MEQ TAB PO PRN (07:44)
[2019-11-15] MEDS ORDERED: Glimepiride 4 MG TAB PO SCH (08:00)
[2019-11-15 08:22] VITALS: BP 131/61; TEMP 98.2
[2019-11-15] MEDS: levETIRAcetam 500 MG TAB PO SCH (08:51)
[2019-11-15] MEDS ORDERED: Aspirin 325 mg Enteric Coated Tablet PO SCH (09:00)
[2019-11-15] MEDS ORDERED: Escitalopram Oxalate 20 mg Tablet PO SCH (09:00)
[2019-11-15] MEDS ORDERED: Triamterene/Hydrochlorothiazide 37.5 mg/25 mg Tablet PO SCH ×2 (09:00)
--- NOTE | 2019-11-15 10:16 | CON ---
DATE OF CONSULTATION: 11/15/2019 CONSULT PHYSICIANS: Family Medicine Service. IMPRESSION: 1. 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 2. 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 3. History of depression and anxiety. PLAN: 1. Continue Keppra 500 mg twice a day. 2. Consider adding an antidepressant other than Wellbutrin. HISTORY OF PRESENT ILLNESS: Ms. Tidwell is a 59-year-old white female with history of episodes of hemiparesis that occurred back in 2018. She was evaluated by Dr. Montejo. There was never any convulsive jerking or twitching associated with the paralysis. She almost received tPA in the past secondary to this. Her MRIs of the brain were unremarkable. She was started on Keppra following an EEG that was done at that time. The EEG was read as normal. She has not had any episodes for the last 2 years. Earlier this week, she started having some dizziness while she was at a restaurant. She was brought back to the office area. She reportedly yelled and had some thrashing movements that were witnessed and also recorded on the video camera. She was taken to an emergency room. She was given an extra dose of Keppra and subsequently discharged from the ER. Prior to this admission, she went to Dr. Guadalupe's office for a followup given the events that occurred on Sunday. She apparently had some seizure-like activity and was transferred to the emergency room. She was given Ativan 2 mg and a gram of Keppra. Her CT of the brain was negative. Her MRI of the brain is also normal. She had an EEG monitoring done yesterday. Events were captured, where there was body jerking suspicious for seizure-like activity, although there was no epileptiform events recorded. She admits that she has had problems with her emotional state and anxiety. She is not currently on an antidepressant. She was started on amphetamines for ADD. PAST HISTORY: Otherwise, negative. FAMILY HISTORY: Noncontributory. ALLERGIES: NONE. SOCIAL HISTORY: No tobacco or alcohol use. REVIEW OF SYSTEMS: Ten-system review of systems is otherwise negative. PHYSICAL EXAMINATION: GENERAL: She is a somewhat overweight, middle-aged woman, in no acute distress. VITAL SIGNS: Blood pressure 131/61, pulse 91, respirations 16, and temperature 98.2. HEENT: Pupils are equal and reactive. Conjunctivae are clear. Oropharynx clear. NECK: Supple. EXTREMITIES: No cyanosis, clubbing, or edema. NEUROLOGIC: She is alert and appropriate. Her speech is fluent and clear. There is no facial asymmetry. She had good strength bilaterally. No abnormal movements were seen. Sensations intact to touch. LABORATORY STUDIES: She has mild anemia with a hemoglobin of 11.1. Chemistry panel was normal. Keppra level was 21. SUMMARY: Middle-aged woman with new episodes of screaming and shaking. Her EEG did not show any evidence of epileptiform activity. I have explained this to her family. I would suggest starting an antidepressant. It is not clear whether her prior paralytic events were epileptic in origin or not. She has not had any further symptoms of this nature. I would continue her current dose of Keppra and she can be followed up as an outpatient. Job ID: [id number]
--- NOTE | 2019-11-15 20:35 | DIS ---
DATE OF ADMISSION: 11/14/2019 DATE OF DISCHARGE: 11/15/2019 RESIDENT: Raquel Suarez DO ADMITTING ATTENDING: Dinh Kramer MD DISCHARGE ATTENDING: Laura Vanessa MD CONSULTS: Neurology, Dr. Gideon Leonard. PROCEDURES: Brain MRI on November 14, 2019: Unremarkable head MRI. The right frontal bone lesion is stable as compared to the prior examination on March 18, 2018, and felt to be benign. PRIMARY DIAGNOSIS: Complex partial seizure with history of Gideon paralysis. SECONDARY DIAGNOSES: 1. Normocytic anemia, chronic. 2. Hypertension. 3. Hyperlipidemia. 4. Diabetes mellitus, type 2. 5. Obstructive sleep apnea. 6. Restless legs syndrome. 7. Anxiety. 8. Depression. 9. Tobacco use. DISCHARGE MEDICATIONS: 1. Buspirone HCL 5 mg p.o. b.i.d. 2. Meclizine 25 mg p.o. t.i.d. 3. Hydroxyzine 25 mg p.o. q.i.d. p.r.n. 4. Dyazide 37.5-25 mg p.o. daily. 5. Ibuprofen 800 mg p.o. t.i.d. p.r.n. 6. Aspirin 325 mg p.o. daily. 7. Keppra 500 mg p.o. b.i.d. 8. Glimepiride 4 mg p.o. q.a.m. with meals. 9. Escitalopram oxalate (Lexapro) 20 mg p.o. daily. 10. Potassium chloride 20 mEq p.o. p.r.n. 11. Furosemide 40 mg p.o. daily p.r.n. 12. Lovastatin 40 mg p.o. at bedtime. 13. Omeprazole magnesium 10 mg p.o. daily. 14. Methylphenidate HCL 20 mg p.o. b.i.d. 15. Ropinirole 3 mg p.o. at bedtime. DISCONTINUED MEDICATIONS: Clonazepam (Klonopin) 0.5 mg p.o. at bedtime. HISTORY OF PRESENT ILLNESS/HOSPITAL COURSE: The patient is a 59-year-old female with past medical history of seizure disorder with Gideon paralysis diagnosed in January 2018, who presents on November 14, 2019, after having witnessed seizure-like activity at her PCP Dr. Guadalupe's office. Most of this history is obtained from the patient's sister, Estee, Dr. Guadalupe, clinic records, and review of [facility] EMR. Approximately 2 days ago, the patient was at work when she felt dizzy. She then began to have episodes lasting 5 to 8 seconds of shaking/jerking movements, that lasted for about 1 hour. She was transferred by EMS to [facility], where she was given 2 mg of Ativan x2, 1 g of Keppra. She had a head CT that was negative and sent home from ED. Earlier today, the patient was sitting in the waiting room of her PCP's office with her daughter and sister when her right hand began shaking, then her left leg began jerking, then the patient's eyes rolled back and she had additional jerking movements in extremities and neck, that lasted for approximately 15 to 20 minutes before stopping. Immediately after this episode, the patient acted confused and did not remember what had happened. This confusion period was prolonged per her sister for several minutes. The patient was then transferred from her PCP's office for direct admission. Upon arrival here, the patient stated she had a mild headache and felt a little dizzy. Otherwise, the patient denied any other complaints including weakness, chest pain, shortness of breath, vision or hearing changes, incontinence, myalgia, arthralgia, or paresthesias. The patient stated that she had not had a seizure prior to this week in about 1 year. She currently takes Keppra 500 mg b.i.d. at home. Her most recent medication change on her home med list was starting Adderall on September 26, 2019. The patient has also been taking about 1600 mg ibuprofen daily at home for the last few weeks, but she cannot describe specific pain for this. The patient also says she did not take her Keppra dose today or last night. The patient was admitted for observation on the stroke unit. It was thought that the patient was having a seizure versus pseudo-seizure with less likelihood of a stroke at this time. The patient had negative stroke workup on November 12, 2019. She also had similar symptoms at her last admission in January 2018, during which she had similar symptoms and also had a negative stroke workup x2 at that time. Shortly after arrival to the floor, an EEG was performed, during which the patient had seizure-like activity that was similar to that described earlier. During this activity, the EEG did not show any epileptiform events. Dr. Leonard with Neurology was consulted. He reviewed the EEG and read it as normal. Dr. Leonard felt that the seizure-like activity was due to a pseudo-seizure, which was secondary to underlying depression. 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 Dr. Leonard discussed these results with family. He recommended continuing the patient's current dose of Keppra 500 mg b.i.d. and to follow up as an outpatient. He further recommended that the patient be started on an additional antidepressant other than Wellbutrin. The patient was seen on the morning of November 15, 2019, and was doing well. She did not have any seizure-like activity overnight. She said her headache was resolved. She felt a little dizzy, but not as bad as before. When asked if she felt well enough to go home, the patient stated that she felt much better and was ready to go. The patient was monitored for the duration of the morning and had no further events. In the early afternoon of November 15, 2019, the patient was deemed stable back to discharge home. She was provided with instructions to have close followup with her PCP, Dr. Guadalupe within the next week. PERTINENT LABS: Keppra level on November 14, 2019: 21.4. DISPOSITION: Stable. DISCHARGE INSTRUCTIONS: 1. Location: Home. 2. Diet: Heart healthy. 3. Activity: As tolerated. 4. Follow up with Dr. Guadalupe in 2 to 3 days for hospital followup. Job ID: [id number]
--- NOTE | 2019-11-17 15:16 | EEG ---
Referring Physician: PENG SCALES EEG # [id number] TEST TYPE: ROUTINE PORTABLE INPATIENT REPORT: AN EEG USING THE INTERNATIONAL TEN-TWENTY SYSTEM OF ELECTRODE PLACEMENT WAS PERFORMED. The waking background is a 8-9 hertz alpha frequency. The patient remained awake throughout the study. Photic stimulation was unremarkable. The patient had witnessed seizure-like events during the tracing. No epileptiform activity was associated with her behavioral events. IMPRESSION: THIS EEG IS UNREMARKABLE FOR EPILEPTIFORM ACTIVITY ASSOCIATED WITH HER BEHAVIORAL EVENTS. THIS WOULD APPEAR TO BE PSEUDOSEIZURES. Database Security Administrator: [employer] Assistant Manager: [email or web address] [email or web address]
== END 2019-11-15 13:45 | disposition home or self-care (01) ==
LOC: 2SW 12:16
PROVIDERS: ADMIT Emergency Medicine; ATTEND Emergency Medicine
DX: G40.209 Localization-related (focal) (partial) symptomatic epilepsy and epileptic syndromes with complex partial seizures, not intractable, without status epilepticus (principal); G83.84 Todd's paralysis (postepileptic); D64.9 Anemia, unspecified; I10 Essential (primary) hypertension; E78.5 Hyperlipidemia, unspecified; E11.9 Type 2 diabetes mellitus without complications; G47.33 Obstructive sleep apnea (adult) (pediatric); G25.81 Restless legs syndrome; F41.9 Anxiety disorder, unspecified; F32.9 Major depressive disorder, single episode, unspecified; F17.210 Nicotine dependence, cigarettes, uncomplicated; Z79.82 Long term (current) use of aspirin; Z79.84 Long term (current) use of oral hypoglycemic drugs; Z79.899 Other long term (current) drug therapy; Z99.89 Dependence on other enabling machines and devices
CPT/HCPCS: 36415; 36416; 70553; 80053; 80177; 82550; 85025; 94660; 95816; 95819; 96365; G0378; J1953

== ENCOUNTER 2020-02-13 12:59 | Emergency (ER) | payer OTHER ==
[2020-02-13 13:36] LABS: #Basophils 0.1 thou/uL (0.0-0.2); #Eosinphils 0.2 thou/uL (0.0-0.7); #Lymphocytes 1.4 thou/uL (1.20-3.40); #Monocytes 0.3 thou/uL (0.11-0.59); %Basophils 1.2 % (0.0-1.0); %Eosinophils 4.2 % (0.0-10.0); %Lymphocytes 27.7 % (21.0-51.0); %Monocytes 5.4 % (0.0-10.0); %Neutrophils 61.5 % (42.0-75.0); Hemoglobin 11.6 g/dL (12.0-16.0); Mean Corpuscular HGB CONC 34.7 g/dL (32.0-36.0); Mean Corpuscular Hemoglobin 30.7 pg (27.0-31.0); Mean Corpuscular Volume 88.6 fL (78.0-98.0); Mean Platelet Volume 9.2 fL (7.4-10.4); Platelet Count 167 thou/uL (130-400); RBC Distribution Width 15.6 % (11.5-14.5); Red Blood Cell (RBC) Count 3.78 mill/uL (4.20-5.40)
[2020-02-13] MEDS ORDERED: Meclizine HCl 25 MG TAB ONE (13:47)
[2020-02-13 14:00] LABS: ALT (SGPT) 29 U/L (8-55); AST (SGOT) 18 U/L (5-34); Albumin 4.3 g/dL (3.5-5.0); Alkaline Phosphatase 124 U/L (40-110); Anion Gap 17 mmol/L (10-20); BUN (Urea Nitrogen) 26 mg/dL (9.8-20.1); Bilirubin, Total 0.6 mg/dL (0.2-1.2); Calc. Creatinine Clearance 0 mL/min (70-130); Calcium 10.3 mg/dL (7.8-10.44); Carbon Dioxide 25 mmol/L (22-29); Chloride 99 mmol/L (98-107); Estimated GFR-MDRD 52; Globulin 2.9 g/dL (2.4-3.5); Glucose 259 mg/dL (70-105); Potassium 3.5 mmol/L (3.5-5.1); Protein, Total 7.2 g/dL (6.0-8.3); Sodium 137 mmol/L (136-145)
--- NOTE | 2020-02-13 14:17 | CT ---
CT BRAIN WITHOUT CONTRAST: 02/13/20 HISTORY: Dizziness. COMPARISON: 11/12/19 FINDINGS: No evidence of acute infarct, hemorrhage, midline shift or abnormal extra-axial fluid collections are seen. The ventricular size is normal and the basilar cisterns patent. The bony calvarium is intact. The visualized paranasal sinuses are well aerated and mastoid air cells are well aerated. IMPRESSION: No CT evidence of acute intracranial process. POS: [facility]
[2020-02-13 15:48] LABS: Bilirubin Negative (Negative); Blood, Urine Negative (Negative); Clarity Clear (Clear); Glucose, Urine (Dipstick) 50 mg/dL (Negative); Leukocyte Negative Leu/uL (Negative); Nitrite Negative (Negative); Protein, Urine (Dipstick) Negative (Neg-Trace); Urobilinogen Normal mg/dL (Less than 2)
== END 2020-02-13 17:33 | disposition home or self-care (01) ==
LOC: ERS 12:59
DX: F44.5 Conversion disorder with seizures or convulsions (principal); I10 Essential (primary) hypertension; E11.9 Type 2 diabetes mellitus without complications; G47.30 Sleep apnea, unspecified; F32.9 Major depressive disorder, single episode, unspecified; F17.210 Nicotine dependence, cigarettes, uncomplicated; Z79.899 Other long term (current) drug therapy
CPT/HCPCS: 70450; 80053; 81003; 84484; 85025; 93005; 96360; 96361; J8597

== ENCOUNTER 2020-09-16 10:00 | Outpatient (CLI) | payer OTHER | END 2020-09-16 10:01 | disposition home or self-care (01) | LOC: DTY/OP 10:00 | PROVIDERS: ATTEND Family Medicine | DX: E66.9 Obesity, unspecified (principal) | CPT/HCPCS: 97802 ==